=== PATIENT | male | born 1990 | race Caucasian/White ===

== ENCOUNTER 2017-07-05 22:35 | Emergency (ER) | payer SELFPAY ==
[~2017-07-05] VITALS: Ht 170.2 cm; Wt 63.6 kg
[~2017-07-05 22:35] MED LIST: CITA20TA9 PO; DIVA500T35 PO; HALO5 PO; [UNRECOGNIZED DRUG - CODE] TP
[2017-07-05] MEDS ORDERED: KETOROLAC TROMETHAMINE 30 MG/ML VIAL IM ONE (23:15)
[2017-07-06 00:14] VITALS: BP 114/61
== END 2017-07-06 00:31 | disposition home or self-care (01) ==
LOC: EMS 22:36
DX: M54.5 Low back pain (principal)
CPT/HCPCS: 96372; 99283; J1885

== ENCOUNTER 2021-07-23 17:00 | Emergency (ER) | payer MEDICAID ==
[~2021-07-23] VITALS: Ht 172.7 cm; Wt 63.6 kg
[2021-07-23] MEDS ORDERED: DiphenhydrAMINE HCL 25 MG CAPSULE PO ONE (17:30)
[2021-07-23] MEDS ORDERED: DEXAMETHASONE 4 MG TABLET PO ONE (17:30)
[2021-07-23 18:25] VITALS: BP 130/91
== END 2021-07-23 18:48 | disposition home or self-care (01) ==
LOC: EMS 17:00
DX: T63.441A Toxic effect of venom of bees, accidental (unintentional), initial encounter (principal); L50.9 Urticaria, unspecified; Y92.89 Other specified places as the place of occurrence of the external cause
CPT/HCPCS: 99283; J8540